=== PATIENT | female | born 1955 | race Caucasian/White ===

== ENCOUNTER 2020-03-09 13:48 | Outpatient (CLI) | payer BC ==
[~2020-03-09] VITALS: Ht 167.6 cm; Wt 90.7 kg
[~2020-03-09 13:48] MED LIST: ARIP5TAB14 PO; ASPI-12 PO; ATOR40TA PO; CALC600T14 PO; CLON-528 PO; CYAN-51 PO; ERGO500014 PO; EYE PROMISE RESTORE PO; FOLI0.4T2 PO; NORCO10T PO; PHEN30CA2 PO; PYRI200T7 PO; RABE20TA25 PO; SERT50TA PO; TOP25T PO; TRAM50TA2 PO; WALKERFR; ZOLP10TA5 PO; [UNRECOGNIZED DRUG - SUPPLY]; cmp
[2020-03-09 14:26] LABS: TOTAL HEMOGLOBIN 13.4 G/dl (12.0-16.0)
[2020-03-09] MEDS ORDERED: albuterol 2.5 MG/3 ML nebule NEB ONE (14:35)
== END 2020-03-09 23:59 | disposition home or self-care (01) ==
LOC: RT 13:48
PROVIDERS: ATTEND Internal Medicine Cardiovascular Disease
DX: R06.02 Shortness of breath (principal)
CPT/HCPCS: 85018; 94060; 94727; 94729; 94760

== ENCOUNTER 2020-05-31 07:35 | Day surgery (SDC) | payer BC ==
[2020-05-23 11:21] LABS: BASOPHILS # (AUTO) 0.1 X10'3 (0-0.2); BASOPHILS % (AUTO) 1.1 % (0-1); EOSINOPHILS # (AUTO) 0.3 X10'3 (0-0.9); LYMPHOCYTES # (AUTO) 3.1 X10'3 (1.1-4.8); LYMPHOCYTES % (AUTO) 30.6 % (21-51); MEAN CORPUSCULAR HEMOGLOBIN 30.2 PG (27.0-31.0); MEAN CORPUSCULAR HGB CONC 33.5 g/dL (33.0-36.5); MEAN CORPUSCULAR VOLUME 90.3 FL (78-98); MEAN PLATELET VOLUME 7.6 FL (7.4-10.4); MONOCYTES # (AUTO) 0.8 X10'3 (0-0.9); MONOCYTES % (AUTO) 8.4 % (2-12); NEUTROPHILS # (AUTO) 5.7 X10'3 (1.8-7.7); NEUTROPHILS % (AUTO) 56.9 % (42-75); PRE OP HEMATOCRIT 45.5 % (35.0-45.0); PRE OP HEMOGLOBIN 15.2 g/dL (12.0-16.0); PRE OP PLATELET COUNT 363 X10'3 (140-440); RED BLOOD COUNT 5.03 X10'6 (4.20-5.60)
[2020-05-23 11:36] LABS: PRE OP PROTIME 10.5 SECONDS (9.0-12.0)
[2020-05-23 11:37] LABS: ALBUMIN 3.7 G/DL (3.4-5.0); ALBUMIN/GLOBULIN RATIO 0.9 (1.1-1.5); ALKALINE PHOSPHATASE 141 IU/L (46-116); BLOOD UREA NITROGEN 14 MG/DL (7-18); CALCIUM 8.9 MG/DL (8.5-10.1); CHLORIDE 105 MMOL/L (99-107); CREATININE 1.17 MG/DL (0.40-0.90); PRE OP ALT 79 U/L (30-65); PRE OP ANION GAP 9 (8-16); PRE OP AST 35 U/L (10-37); PRE OP BILIRUB, TOTAL 0.5 MG/DL (0.0-1.0); PRE OP GLUCOSE 89 MG/DL (70-104); PRE OP POTASSIUM 3.7 MMOL/L (3.4-5.1); PRE OP SODIUM 139 MMOL/L (135-145); TOTAL CARBON DIOXIDE 24.8 MMOL/L (24-32); TOTAL PROTEIN 7.6 G/DL (6.4-8.2); eGFR 47 ML/MIN
[2020-05-31] VITALS (14 sets, daily range): BP systolic 137–179; BP diastolic 81–113
[~2020-05-31] VITALS: Ht 167.6 cm; Wt 90.7 kg
[~2020-05-31 07:35] MED LIST changes: -ARIP5TAB14 PO; -ASPI-12 PO; +CLOB15OI3; -CLON-528 PO; -CYAN-51 PO; -ERGO500014 PO; +FLUT12AE9 INH; +IPRA3AMP9 IH; +LEVO50TA8 PO; +LIDOcaine 1% W/epiNEPHrine 1:100,000 20ml vial ONE; +METF-950 PO; -NORCO10T PO; -PHEN30CA2 PO; -PYRI200T7 PO; -RABE20TA25 PO; +RABE20TA28 PO; -TOP25T PO; -TRAM50TA2 PO; -WALKERFR; -ZOLP10TA5 PO; -[UNRECOGNIZED DRUG - SUPPLY]; +albuterol 2.5 MG/3 ML nebule NEB ONE; +cefTAZidime 1gm inj ONE; -cmp; +cocaine 4% topical solution 4ml bottle ONE; +famotidine 20mg tablet PO ONE; +methylPREDNISolone acetate 80mg/ml inj**IM only ONE; +mupirocin 2% ointment 22GM ONE; +oxymetazoline 15 ML nasal spray NS ONE; +ringers solution, lacted 1,000 ML IV SCH
[2020-05-31] MEDS ORDERED: midazolam 2 mg/2 ml injection ONE (10:24)
[2020-05-31] MEDS ORDERED: fentaNYL/PF 50MCG/1 ML 2ML syringe ONE (10:24)
[2020-05-31] MEDS ORDERED: sevoflurane 250ml liquid IH ONE (10:32)
[2020-05-31] MEDS: oxymetazoline 15 ML nasal spray NS PRN ×2 (10:38→11:31)
[2020-05-31] MEDS ORDERED: ondansetron/PF 4mg/2ml inj ONE (10:54)
[2020-05-31] MEDS ORDERED: dexamethasone sod phosphate 4mg/ml inj. ONE (10:54)
[2020-05-31] MEDS ORDERED: LIDOcaine 2% (20mg/ml) 5ml vial ONE (10:54)
[2020-05-31] MEDS ORDERED: propofol inj 20 ML IV ONE (10:54)
[2020-05-31] MEDS ORDERED: ringers solution, lacted 1,000 ML IV SCH (11:14)
[2020-05-31] MEDS ORDERED: HYDROmorphone inj. 0.5 MG/0.5 ML DISP.SYRIN IV PRN ×2 (11:15)
[2020-05-31] MEDS ORDERED: ketorolac trometh. 30mg/ml inj. IV ONE (11:15)
[2020-05-31] MEDS ORDERED: acetaminophen 1,000mg/100ml IV 100 ML IV PRN (11:15)
[2020-05-31] MEDS ORDERED: morphine 4 MG/ML inj SYRINge IV PRN (11:15)
[2020-05-31] MEDS ORDERED: proCHLORperazine 10 MG/2 ml inj IV PRN (11:15)
[2020-05-31] MEDS ORDERED: ondansetron/PF 4mg/2ml inj IV PRN (11:15)
[2020-05-31] MEDS ORDERED: morphine 2 MG/ML inj. syringe IV PRN (11:15)
[2020-05-31] MEDS ORDERED: BUPIVAcaine 0.5% W/EPI /PF 30ml vial IJ ONE (11:32)
--- NOTE | 2020-05-31 12:39 | NUR ---
Received from OR via [facility] , accompanied by Anesthesiologist SHAYLA and report given by Anesthesiolgist. PATIENT WITH 20G PIV IN RIGHT UE RUNNING LR AT 100. 10L MASK ON AND MAINTAINING O2 SATURATIONS. COTTONOIDS PRESENT IN NARES BILATERALLY. VSS. Addendum: 05/31/20 at 1248 by Juanito Shields RN, RN Amended: Links added.
[2020-05-31] MEDS ORDERED: labetalol 20mg/4ml (5mg/ml) syringe IV PRN (12:55)
[2020-05-31] MEDS ORDERED: labetalol 20mg/4ml (5mg/ml) syringe IV ONE (12:58)
[2020-05-31] MEDS ORDERED: salt irrigation nasal spray 45 ML SPRAY NS PRN (13:25)
[2020-05-31] MEDS: hydrALAZINE 20mg/ml inj. IV PRN ×2 (13:44→14:13)
--- NOTE | 2020-05-31 13:54 | NUR ---
136 GLUCOSE ON ARRIVAL TO RECOVERY Addendum: 05/31/20 at 1354 by Juanito Shields RN, RN Amended: Links added.
--- NOTE | 2020-05-31 14:59 | NUR ---
PATIENT TAKEN TO WITH ALL BELONGINGS AND HOOKED UP TO MONITORS IN ROOM AND REPORT GIVEN TO RN WHO HAS TAKEN OVER PATIENT CARE. BED LOW, CALL LIGHT IN REACH, VSS, DRESSINGS CDI. ALL MEDS ADMINISTERED ORDERED BY MD POLK. Addendum: 05/31/20 at 1505 by Juanito Shields RN, RN Amended: Links added.
== END 2020-05-31 14:59 | disposition home or self-care (01) ==
LOC: PAS 07:35
PROVIDERS: ATTEND Otolaryngology
DX: J34.2 Deviated nasal septum (principal); J34.3 Hypertrophy of nasal turbinates; J32.8 Other chronic sinusitis; J33.8 Other polyp of sinus; J45.909 Unspecified asthma, uncomplicated; E03.9 Hypothyroidism, unspecified; F32.9 Major depressive disorder, single episode, unspecified; E11.9 Type 2 diabetes mellitus without complications; E66.9 Obesity, unspecified; Z68.32 Body mass index [BMI] 32.0-32.9, adult; Z11.59 Encounter for screening for other viral diseases; Z79.01 Long term (current) use of anticoagulants; Z79.899 Other long term (current) drug therapy; Z88.8 Allergy status to other drugs, medicaments and biological substances; Z88.5 Allergy status to narcotic agent
CPT/HCPCS: 30140; 30520; 31253; 31259; 31267; 36415; 61782; 71046; 80053; 82948; 85025; 85576; 85610; 85730; 87635; 93005; A6402; C9250; C9803; J0360; J0713; J0780; J1040; J1100; J2001; J2250; J2270; J2405; J2704; J3010; J7040; J7120; U0003; A4618; A7000; J3490